=== PATIENT | male | born 1945 | race Caucasian/White ===

== ENCOUNTER 2019-11-11 18:24 | Emergency (ER) | payer OTHER ==
[2019-11-11] MEDS ORDERED: DIPHENHYDRAMINE 25 MG TAB/CAP ONE (19:44)
[2019-11-11] MEDS ORDERED: METHYLPREDNISOLONE 125 MG INJ ONE (19:50)
[2019-11-11] MEDS ORDERED: DIPHENHYDRAMINE 50 MG/ML VIAL ONE (19:51)
[2019-11-11] MEDS ORDERED: FAMOTIDINE 20 MG/2 ML VIAL IV ONE (19:51)
--- NOTE | 2019-11-11 20:48 | EDPHYS ---
Physician Documentation [facility] Name: Christian Tejada Age: 74 yrs Sex: Male : 1945 Arrival Date: 11/11/2019 Time: 18:26 Bed 8 Private MD: ED Physician Karl Waldron HPI: 11/10 19:48 This 74 yrs old Male presents to ER via Ambulatory with complaints of Bee mh7 Sting, Arm Swelling. 19:48 The patient or guardian complains of a bite, by an insect, swelling. The complaints mh7 affect the left forearm. Context: The problem was sustained at a friend's house, resulted from Wasp sting. Onset: The symptoms/episode began/occurred yesterday. Treatment prior to arrival includes: no previous treatment. Modifying factors: The symptoms are alleviated by nothing. the symptoms are aggravated by nothing. Associated signs and symptoms: Pertinent negatives: decreased range of motion, deformity, fever, nausea, numbness, pain, tingling, vomiting, warmth, weakness. Severity of symptoms: At their worst the symptoms were moderate, yesterday, in the emergency department the symptoms have improved, moderately. Historical: - Allergies: 18:49 No Known Drug Allergies; ll1 - PMHx: 18:49 High Cholesterol; Diabetes - NIDDM; Hypertension; ll1 - PSHx: 18:49 AAA REPAIR; ll1 - Immunization history:: Flu vaccine is not up to date. - Social history:: Smoking status: Patient denies any tobacco usage or history of. Patient/guardian denies using alcohol, street drugs, tobacco products. ROS: 19:48 Constitutional: Negative for fever, chills, and weight loss, Eyes: Negative for injury, mh7 pain, redness, and discharge, ENT: Negative for injury, pain, and discharge, Neck: Negative for injury, pain, and swelling, Cardiovascular: Negative for chest pain, palpitations, and edema, Respiratory: Negative for shortness of breath, cough, wheezing, and pleuritic chest pain, Abdomen/GI: Negative for abdominal pain, nausea, vomiting, diarrhea, and constipation, Back: Negative for injury and pain, : Negative for injury, bleeding, discharge, and swelling, Neuro: Negative for headache, weakness, numbness, tingling, and seizure, Psych: Negative for depression, anxiety, suicide ideation, homicidal ideation, and hallucinations, Allergy/Immunology: Negative for hives, rash, and allergies, Endocrine: Negative for neck swelling, polydipsia, polyuria, polyphagia, and marked weight changes, Hematologic/Lymphatic: Negative for swollen nodes, abnormal bleeding, and unusual bruising. Exam: 19:48 Constitutional: This is a well developed, well nourished patient who is awake, alert, mh7 and in no acute distress. Head/Face: Normocephalic, atraumatic. Eyes: Pupils equal round and reactive to light, extra-ocular motions intact. Lids and lashes normal. Conjunctiva and sclera are non-icteric and not injected. Cornea within normal limits. Periorbital areas with no swelling, redness, or edema. ENT: Nares patent. No nasal discharge, no septal abnormalities noted. Tympanic membranes are normal and external auditory canals are clear. Oropharynx with no redness, swelling, or masses, exudates, or evidence of obstruction, uvula midline. Mucous membranes moist. Neck: Trachea midline, no thyromegaly or masses palpated, and no cervical lymphadenopathy. Supple, full range of motion without nuchal rigidity, or vertebral point tenderness. No Meningismus. Chest/axilla: Normal chest wall appearance and motion. Nontender with no deformity. No lesions are appreciated. Cardiovascular: Regular rate and rhythm with a normal S1 and S2. No gallops, murmurs, or rubs. Normal PMI, no JVD. No pulse deficits. Respiratory: Lungs have equal breath sounds bilaterally, clear to auscultation and percussion. No rales, rhonchi or wheezes noted. No increased work of breathing, no retractions or nasal flaring. Abdomen/GI: Soft, non-tender, with normal bowel sounds. No distension or tympany. No guarding or rebound. No evidence of tenderness throughout. Back: No spinal tenderness. No costovertebral tenderness. Full range of motion. 19:48 Neuro: Awake and alert, GCS 15, oriented to person, place, time, and situation. Cranial nerves II-XII grossly intact. Motor strength 5/5 in all extremities. Sensory grossly intact. Cerebellar exam normal. Normal gait. Psych: Awake, alert, with orientation to person, place and time. Behavior, mood, and affect are within normal limits. 19:48 Musculoskeletal/extremity: Extremities: noted in the left forearm: erythema, swelling, ROM: intact in all extremities, Circulation is intact in all extremities. Sensation intact. Compartment Syndrome exam of affected extremity: is normal. no pain, no numbness, no tingling, no sensation deficit, no palor, no weak pulses, Joints: All joints are normal except Weight bearing: able to fully bear weight, without difficulty, Tendon exam: specific tendon testing normal through active and passive range of motion Vital Signs: 18:50 BP 141 / 98; Pulse 89; Resp 18; Temp 98.7; Pulse Ox 97% ; Pain 4/10; ll1 20:00 BP 135 / 75; Pulse 85; Resp 16; Temp 98.2; Pulse Ox 99% ; Pain 0/10; rr5 21:00 BP 131 / 70; Pulse 80; Resp 17; Pulse Ox 98% on R/A; rr5 MDM: 19:28 Patient medically screened. [facility] 20:45 Differential diagnosis: Insect Bite, Insect Sting, Cellulitis, Allergic Reaction. Data [facility] reviewed: vital signs, nurses notes. Data interpreted: Pulse oximetry: on room air is 99 %. Interpretation: normal. Counseling: I had a detailed discussion with the patient and/or guardian regarding: the historical points, exam findings, and any diagnostic results supporting the discharge/admit diagnosis, the need for outpatient follow up, to return to the emergency department if symptoms worsen or persist or if there are any questions or concerns that arise at home. Response to treatment: the patient's symptoms have markedly improved after treatment. 11/10 19:51 Order name: Glucose, Ancillary Testing [facility] 11/10 19:31 Order name: Accucheck Blood Glucose; Complete Time: 19:59 [facility] 11/10 19:58 Order name: IV Saline Lock; Complete Time: 19:58 rr5 Administered Medications: 19:50 Drug: Pepcid 20 mg Route: IVP; Site: right hand; rr5 21:00 Follow up: Response: No adverse reaction rr5 11/11 01:16 Follow up: Response: No adverse reaction 5 11/10 19:52 Drug: Benadryl 50 mg Route: IVP; Site: right hand; rr5 21:00 Follow up: Response: No adverse reaction 5 19:54 Drug: SOLU-Medrol 125 mg Route: IVP; Site: right hand; rr5 21:00 Follow up: Response: No adverse reaction rr5 19:57 Not Given (Other Intervention Used): Benadryl 50 mg PO once rr5 19:57 Not Given (Other Intervention Used): Pepcid 20 mg PO once rr5 Disposition: 11/11/19 20:47 Discharged to Home. Impression: Wasp Sting. - Condition is Stable. - Prescriptions for Benadryl 25 mg Oral Capsule - take 1 capsule by ORAL route every 6 hours As needed; 30 tablet. Pepcid 20 mg Oral Tablet - take 1 tablet by ORAL route every 12 hours for 5 days; 10 tablet. Prednisone 20 mg Oral Tablet - take 2 tablet by ORAL route once daily for 5 days; 10 tablet. - Medication Reconciliation Form, Thank You Letter, Antibiotic Education, Prescription Opioid Use form. - Follow up: Private Physician; When: 1 - 2 days; Reason: Worsening of condition, Recheck today's complaints, Re-evaluation by your physician. - Problem is new. - Symptoms have improved. Signatures: Dispatcher [employer] EDMS Alin Hemphill RN RN jb4 Janes Felipe RN RN rr5 Ankit Bridges RN RN ll1 Karl Waldron MD MD mh7 Corrections: (The following items were deleted from the chart) 21:09 20:47 11/11/2019 20:47 Discharged to Home. Impression: Wasp Sting. Condition is Stable. jb4 Forms are Medication Reconciliation Form, Thank You Letter, Antibiotic Education, Prescription Opioid Use. Follow up: Private Physician; When: 1 - 2 days; Reason: Worsening of condition, Recheck today's complaints, Re-evaluation by your physician. Problem is new. Symptoms have improved. mh7
--- NOTE | 2019-11-11 20:48 | ER ---
Nurse's Notes [facility] Name: Christian Tejada Age: 74 yrs Sex: Male : 1945 Arrival Date: 11/11/2019 Time: 18:26 Bed 8 Private MD: Diagnosis: Wasp Sting Presentation: 11/10 18:50 Chief complaint: Patient states: Insect bite to left FA yesterday. Swelling, pain, and ll1 redness getting worse since. Coronavirus screen: Proceed with normal triage. Patient denies a cough. Patient denies shortness of breath or difficulty breathing. Patient denies measured and/or subjective temperature greater than 100.4F prior to today's visit. Patient denies travel on a cruise ship or to a country the [facility] currently lists as an affected area. Patient denies contact with known and/or suspected case of COVID-19. Ebola Screen: Patient denies travel to an Ebola-affected area in the 21 days before illness onset. Onset: The symptoms/episode began/occurred yesterday. Anaphylaxis evaluation, no signs or symptoms of anaphylaxis were noted. Initial Sepsis Screen: Does the patient meet any 2 criteria? No. Patient's initial sepsis screen is negative. Risk Assessment: Do you want to hurt yourself or someone else? Patient reports no desire to harm self or others. Onset of symptoms was November 10, 2019. 18:50 Acuity: JAMES 3 ll1 18:50 Method Of Arrival: Ambulatory ll1 18:50 Initial Sepsis Screen: Does the patient have a suspected source of infection? Yes: Skin rr5 breakdown/wound. Historical: - Allergies: 18:49 No Known Drug Allergies; ll1 - PMHx: 18:49 High Cholesterol; Diabetes - NIDDM; Hypertension; ll1 - PSHx: 18:49 AAA REPAIR; ll1 - Immunization history:: Flu vaccine is not up to date. - Social history:: Smoking status: Patient denies any tobacco usage or history of. Patient/guardian denies using alcohol, street drugs, tobacco products. Screenin:00 Abuse screen: Denies threats or abuse. Denies injuries from another. Nutritional rr5 screening: No deficits noted. Tuberculosis screening: No symptoms or risk factors identified. Fall Risk IV access (20 points). Total Maguire Fall Scale indicates No Risk (0-24 pts). Assessment: 19:30 General: Appears in no apparent distress. comfortable, Behavior is calm, cooperative, rr5 appropriate for age. Pain: Denies pain. 19:30 Neuro: Level of Consciousness is awake, alert, obeys commands, Oriented to person, rr5 place, time, situation. Cardiovascular: Capillary refill < 3 seconds Patient's skin is warm and dry. Respiratory: Airway is patent Respiratory effort is even, unlabored, Respiratory pattern is regular, symmetrical, Breath sounds are clear bilaterally. Denies shortness of breath. GI: No signs and/or symptoms were reported involving the gastrointestinal system. : No signs and/or symptoms were reported regarding the genitourinary system. EENT: No signs and/or symptoms were reported regarding the EENT system. Derm: Skin is intact, is healthy with good turgor, Skin temperature is warm Rash noted that is itchy, papular, red, on left forearm. Musculoskeletal: Capillary refill < 3 seconds, Swelling present in left forearm. 20:50 Reassessment: Patient appears in no apparent distress at this time. Patient is alert, rr5 oriented x 3, equal unlabored respirations, skin warm/dry/pink. Patient states symptoms have improved. 21:00 Reassessment: Patient appears in no apparent distress at this time. Patient is alert, rr5 oriented x 3, equal unlabored respirations, skin warm/dry/pink. discharge instruction given and explained without complaints made. Patient states feeling better. Vital Signs: 18:50 BP 141 / 98; Pulse 89; Resp 18; Temp 98.7; Pulse Ox 97% ; Pain 4/10; ll1 20:00 BP 135 / 75; Pulse 85; Resp 16; Temp 98.2; Pulse Ox 99% ; Pain 0/10; rr5 21:00 BP 131 / 70; Pulse 80; Resp 17; Pulse Ox 98% on R/A; rr5 ED Course: 18:26 Patient arrived in ED. as 18:51 Triage completed. ll1 19:03 Karl Waldron MD is Attending Physician. 7 19:10 Janes Felipe, ELIGIO is Primary Nurse. rr5 19:30 Patient has correct armband on for positive identification. Bed in low position. Call rr5 light in reach. Pulse ox on. NIBP on. 19:30 Arm band placed on right wrist. rr5 19:50 Inserted saline lock: 22 gauge in right hand, using aseptic technique. rr5 21:30 No provider procedures requiring assistance completed. IV discontinued, intact, rr5 bleeding controlled, No redness/swelling at site. Pressure dressing applied. Administered Medications: 19:50 Drug: Pepcid 20 mg Route: IVP; Site: right hand; rr5 21:00 Follow up: Response: No adverse reaction rr5 11/11 01:16 Follow up: Response: No adverse reaction rr5 11/10 19:52 Drug: Benadryl 50 mg Route: IVP; Site: right hand; rr5 21:00 Follow up: Response: No adverse reaction rr5 19:54 Drug: SOLU-Medrol 125 mg Route: IVP; Site: right hand; rr5 21:00 Follow up: Response: No adverse reaction rr5 19:57 Not Given (Other Intervention Used): Benadryl 50 mg PO once rr5 19:57 Not Given (Other Intervention Used): Pepcid 20 mg PO once rr5 Outcome: 20:47 Discharge ordered by . 7 21:00 Discharged to home ambulatory. rr5 21:00 Condition: stable 21:00 Discharge instructions given to patient, Instructed on discharge instructions, follow up and referral plans. medication usage, Demonstrated understanding of instructions, follow-up care, medications, Prescriptions given X 3. 21:09 Patient left the ED. jb4 Signatures: Ileana Ballard James RN RN jb4 Janes Felipe RN RN rr5 Ankit Bridges RN RN ll1 Karl Waldron MD MD 7 Corrections: (The following items were deleted from the chart) 19:10 18:50 Chief complaint: Patient states: Insect bit to left FA yesterday. Swelling, pain, ll1 and redness getting worse since. ll1 11/11 01:15 11/10 21:10 BP 131 / 70; Pulse 80bpm; Resp 17bpm; Pulse Ox 98% RA; rr5 rr5 11/11 01:16 06 21:30 Reassessment: Patient appears in no apparent distress at this time. Patient rr5 is alert, oriented x 3, equal unlabored respirations, skin warm/dry/pink. discharge instruction given and explained without complaints made. Patient states feeling better. rr5
[2019-11-11 21:22] VITALS: BP 135/75; TEMP 98.2; O2SAT 99
== END 2019-11-11 21:09 | disposition home or self-care (01) ==
LOC: ER 18:24
DX: S50.862A Insect bite (nonvenomous) of left forearm, initial encounter (principal); I10 Essential (primary) hypertension
CPT/HCPCS: 82947; 96375; 96374; 99284; J1200; J2930

== ENCOUNTER 2023-04-23 22:41 | Emergency (ER) | payer OTHER ==
--- OUTSIDE RECORDS SUMMARY | 2023-04-23 22:44 | XMS REPORT | Continuity of Care Document ---
Author Name Unknown Address [address] [place] [address] [facility] thconnect Address [address] [place] [address] Care Team Providers Care Senior Microsoft Consultant Name Role Phone CHRISTOPHER GIBBS Primary Care Physician NERISSA Lopez Attending Clinician Mamie Simpson MD, Nerissa Santos Attending Clinician [phone] NERISSA HOBSON Admitting Clinician Mamie garcia Payers Payer Name Policy Type Policy Number Effective Date Expirati on Date Source Code Blue [id number] 2022 00:00:00 Allergies, Adverse Reactions, Alerts Allergy Name Allergy Type Status Severity Reaction(s) Onset Date Inactive Date Treating Clinician Comments Source NO KNOWN ALLERGIE S Drug Class Active [facility] Social History Social Habit Start Date Stop Date Quantity Comments Source Sexual orientation [facility] Gender identity [facility] Sex Assigned At 1945 00:00:00 1945 00:00:00 [facility] Smoking Status Start Date Stop Date Source Tobacco smoking consumption unknown [facility] Procedures Procedure Date / Time Performed Performing Clinicia n Source MR LUMBAR SPINE WO CONTRAST 2022-12-13 16:47:15 Nerissa Hobson [facility] Encounters Start Date/Time End Date/Time Encounter Type Admission Type Attending Clinicians Care Facility Care Department Encounter ID Source 2022-12-13 10:15:09 2022-12-13 23:59:00 Outpatient R NERISSA HOBSON [facility] [id number] [facility] 2022-12-13 10:00:00 2022-12-13 23:59:00 Hospital Encounter Nerissa Hobson [facility] [id number] [facility]
[2023-04-23] MEDS ORDERED: HYDROCODONE/APAP 5/325 MG TAB ONE (23:29)
[2023-04-23] MEDS ORDERED: methocarbamoL 750 MG TAB ONE (23:29)
[2023-04-23] MEDS ORDERED: IBUPROFEN 400 MG TAB ONE (23:29)
[2023-04-23] MEDS ORDERED: ONDANSETRON 4 MG (ODT) TAB ONE (23:30)
--- NOTE | 2023-04-24 02:18 | ER ---
Nurse's Notes [facility] Name: Christian Tejada Age: 78 yrs Sex: Male : 1945 Arrival Date: 04/23/2023 Time: 22:41 Bed 16 Private MD: Diagnosis: Contusion of left shoulder;Acute head injury, left shoulder contusion, left shoulder sprain, left forearm abrasion, left hand abrasion Presentation: 04/23 22:52 Chief complaint: Patient states: tripped and fell in parking lot hit left shoulder on running board abrasians noted to left arm no active bleeding noted. Coronavirus screen: Vaccine status: Patient reports receiving the 2nd dose of the covid vaccine. Ebola Screen: Patient negative for fever greater than or equal to 101.5 degrees Fahrenheit, and additional compatible Ebola Virus Disease symptoms. Initial Sepsis Screen: Does the patient meet any 2 criteria? No. Patient's initial sepsis screen is negative. Does the patient have a suspected source of infection? No. Patient's initial sepsis screen is negative. Risk Assessment: Do you want to hurt yourself or someone else? Patient reports no desire to harm self or others. Onset of symptoms was April 23, 2023 at 21:30. 22:52 Method Of Arrival: Wheelchair kl 22:52 Acuity: JAMES 3 kl Triage Assessment: 23:01 General: Appears uncomfortable, Behavior is calm, cooperative. Pain: Complains of pain kl in left supraclavicular area Pain currently is 8 out of 10 on a pain scale. Historical: - Allergies: 22:54 No Known Allergies; - Home Meds: 22:54 metformin 1,000 mg oral tablet 2 times per day [Active]; omeprazole 20 mg Oral kl capsule,delayed release (e.c.) daily [Active]; lisinopril 5 mg Oral tablet 1 tab daily [Active]; clopidogrel 75 mg oral tablet 1 tab daily [Active]; atorvastatin 10 mg oral tablet every day at bedtime [Active]; Lasix 20 mg Oral tablet 1 tab daily [Active]; metoprolol tartrate 50 mg Oral tablet daily [Active]; allopurinol 100 mg Oral tablet daily [Active]; amlodipine 5 mg tablet 1 tab daily [Active]; glimepiride 1 mg Oral tablet daily [Active]; tramadol 50 mg Oral tablet 3 times per day [Active]; - PMHx: 22:54 Diabetes - NIDDM; High Cholesterol; Hypertension; Aneurysm; Gout; Chronic back pain; kl - PSHx: 22:54 hernia repair (Hypertension); Stented artery; kl - Immunization history:: Client reports receiving the 2nd dose of the Covid vaccine, Last tetanus immunization: unknown, Pneumococcal vaccine is up to date, Flu vaccine is up to date. - Social history:: Smoking status: Patient denies any tobacco usage or history of. - Family history:: not pertinent. Screenin:25 [facility] ED Fall Risk Assessment (Adult) History of falling in the last 3 months, tm6 including since admission Yes- single mechanical fall (1 pt) Confusion or Disorientation No (0 pts) Intoxicated or Sedated No (0 pts) Impaired Gait No (0 pts) Mobility Assist Device Used No (0 pt) Altered Elimination No (0 pt) Score/Fall Risk Level 0 - 2 = Low Risk Oriented to surroundings, Maintained a safe environment, Educated pt \T\ family on fall prevention, incl call for assistance when getting out of bed, Assessed \T\ reinforced patient's understanding of fall precautions, Hourly rounding (assess needs \T\ fall precautionary measures) done. Abuse screen: Denies threats or abuse. Denies injuries from another. Nutritional screening: No deficits noted. Tuberculosis screening: No symptoms or risk factors identified. Assessment: 23:25 General: Appears in no apparent distress. Behavior is calm, cooperative, appropriate tm6 for age. Pain: Complains of pain in posterior aspect of left shoulder Pain currently is 9 out of 10 on a pain scale. Alleviated by rest, Aggravated by repositioning. Neuro: Level of Consciousness is awake, alert, obeys commands, Oriented to person, place, time, situation. Cardiovascular: Capillary refill < 3 seconds Patient's skin is warm and dry. Respiratory: Airway is patent Respiratory effort is even, unlabored, Respiratory pattern is regular, symmetrical. GI: Abdomen is flat, non-distended. : No signs and/or symptoms were reported regarding the genitourinary system. EENT: No signs and/or symptoms were reported regarding the EENT system. Derm: No signs and/or symptoms reported regarding the dermatologic system. Musculoskeletal: Reports pain in posterior aspect of left shoulder. 12/12 00:16 Reassessment: Patient appears in no apparent distress at this time. Patient and/or tm6 family updated on plan of care and expected duration. Pain level reassessed. Patient is alert, oriented x 3, equal unlabored respirations, skin warm/dry/pink. 01:10 Reassessment: Patient appears in no apparent distress at this time. Patient and/or tm6 family updated on plan of care and expected duration. Pain level reassessed. Patient is alert, oriented x 3, equal unlabored respirations, skin warm/dry/pink. 01:11 Reassessment: Right elbow bleeding. Cleaned with saline and dressing applied. tm6 02:15 Reassessment: Patient appears in no apparent distress at this time. Patient and/or tm6 family updated on plan of care and expected duration. Pain level reassessed. Patient is alert, oriented x 3, equal unlabored respirations, skin warm/dry/pink. Vital Signs: 04/23 22:52 BP 142 / 104; Pulse 92; Resp 20; Temp 98(TE); Pulse Ox 98% on R/A; Weight 99.79 kg; kl Height 6 ft. 0 in. ; Pain 8/10; 23:25 BP 149 / 102; Pulse 95; Pulse Ox 94% on R/A; Pain 9/10; tm6 04/24 00:16 BP 111 / 76; Pulse 92; Pulse Ox 95% ; Pain 4/10; tm6 01:10 BP 119 / 78; Pulse 89; Resp 17; Pulse Ox 93% on R/A; Pain 4/10; tm6 02:15 BP 117 / 89; Pulse 87; Pulse Ox 94% on R/A; tm6 04/23 22:52 Body Mass Index 29.84 (99.79 kg, 182.88 cm) 04/23 22:52 Pain Scale: Adult kl 23:25 Pain Scale: Adult tm6 04/24 00:16 Pain Scale: Adult tm6 01:10 Pain Scale: Adult tm6 ED Course: 04/23 22:51 Patient arrived in ED. jb4 22:54 Triage completed. kl 22:58 Jered Wallis MD is Attending Physician. sp4 23:25 Jason Jaramillo RN is Primary Nurse. tm6 23:25 Patient has correct armband on for positive identification. Placed in gown. Bed in low tm6 position. Call light in reach. Side rails up X2. Provided Education on: plan of care. Client placed on continuous cardiac and pulse oximetry monitoring. NIBP monitoring applied. Door closed. Noise minimized. Warm blanket given. 23:25 Arm band placed on right wrist. tm6 23:25 No provider procedures requiring assistance completed. tm6 23:51 Chest Pa And Lat (2 Views) XRAY In Process Unspecified. EDMS 23:51 Shoulder Left (2 View) XRAY In Process Unspecified. EDMS 04/24 00:01 CT Head C Spine In Process Unspecified. EDMS 01:11 Dressings: Tegaderm X 1; right elbow 4X4s. tm6 02:40 Shoulder immobilizer applied on left shoulder. tm6 02:41 Patient did not have IV access during this emergency room visit. tm6 Administered Medications: 04/23 23:21 Not Given (Other Intervention Used): norco10 mg-325 mg 1 tabs PO once kl 23:21 Drug: Methocarbamol PO 750 mg PO once Route: PO; kl 23:21 Drug: Ibuprofen PO 400 mg PO once Route: PO; kl 23:21 Drug: Ondansetron PO 4 mg PO once Route: PO; kl 23:22 Drug: HYDROcodone-acetaminophen PO 5 mg-325 mg 2 tabs PO once Route: PO; kl 04/24 02:20 Drug: Boostrix Tdap IM 0.5 ml IM once; as a single dose Route: IM; Site: right deltoid; tm6 02:38 CANCELLED (not in pyxiss): tetanus-diphtheria toxoidadult 0.5 ml IM once; Provide tm6 Vaccine Information Statement (VIS). Medication: 04/23 23:25 VIS not applicable for this client. tm6 Outcome: 04/24 02:17 Discharge ordered by . sp4 02:40 Discharged to home ambulatory, with family, tm6 02:40 Condition: stable 02:40 Discharge instructions given to patient, family, Instructed on discharge instructions, follow up and referral plans. medication usage, Demonstrated understanding of instructions, follow-up care, medications, Prescriptions given X 1, 02:41 Patient left the ED. tm6 Signatures: Dispatcher [employer] EDReyna Palomino RN RN kl Bryson, James, RN RN jb4 Potepalov, Sergey, MD MD sp4 Jason Jaramillo RN RN tm6 Corrections: (The following items were deleted from the chart) 02:40 02:39 BP 117 / 89; Pulse 87bpm; Pulse Ox 94% RA; tm6 tm6
--- NOTE | 2023-04-24 02:18 | EDPHYS ---
Physician Documentation [facility] Name: Christian Tejada Age: 78 yrs Sex: Male : 1945 Arrival Date: 04/23/2023 Time: 22:41 Bed 16 Private MD: ED Physician Jered Wallis HPI: 04/23 22:58 This 78 yrs old Male presents to ER via Wheelchair with complaints of gen sp4 complaint . 04/24 20:11 . sp4 20:11 Patient is 78-year-old of [employer] today fell in a parking lot sp4 landing on his left shoulder causing left shoulder pain, left clavicular pain, also left-sided facial injury, left forearm abrasion as well. Denied LOC, GCS 15 on arrival. Historical: - Allergies: 04/23 22:54 No Known Allergies; kl - Home Meds: 22:54 metformin 1,000 mg oral tablet 2 times per day [Active]; omeprazole 20 mg Oral kl capsule,delayed release (e.c.) daily [Active]; lisinopril 5 mg Oral tablet 1 tab daily [Active]; clopidogrel 75 mg oral tablet 1 tab daily [Active]; atorvastatin 10 mg oral tablet every day at bedtime [Active]; Lasix 20 mg Oral tablet 1 tab daily [Active]; metoprolol tartrate 50 mg Oral tablet daily [Active]; allopurinol 100 mg Oral tablet daily [Active]; amlodipine 5 mg tablet 1 tab daily [Active]; glimepiride 1 mg Oral tablet daily [Active]; tramadol 50 mg Oral tablet 3 times per day [Active]; - PMHx: 22:54 Diabetes - NIDDM; High Cholesterol; Hypertension; Aneurysm; Gout; Chronic back pain; kl - PSHx: 22:54 hernia repair (Hypertension); Stented artery; kl - Immunization history:: Client reports receiving the 2nd dose of the Covid vaccine, Last tetanus immunization: unknown, Pneumococcal vaccine is up to date, Flu vaccine is up to date. - Social history:: Smoking status: Patient denies any tobacco usage or history of. - Family history:: not pertinent. ROS: 04/24 20:11 Constitutional: Negative for fever, chills, and weight loss, positive acute fall, sp4 positive left-sided facial head injury, positive left shoulder injury, positive left clavicular pain, positive left forearm abrasion, positive left hand abrasion All other systems are negative, Exam: 20:11 Constitutional: This is a well developed, well nourished patient who is awake, alert, sp4 and in no acute distress. Head/Face: Normocephalic, atraumatic. There is a left-sided facial contusion Eyes: Pupils equal round and reactive to light, extra-ocular motions intact. Lids and lashes normal. Conjunctiva and sclera are not injected. Cornea within normal limits. Periorbital areas with no swelling, redness, or edema. ENT: Nares patent. No nasal discharge, no septal abnormalities noted. Tympanic membranes are normal and external auditory canals are clear. Oropharynx with no redness, swelling, or masses, exudates, or evidence of obstruction, uvula midline. Mucous membranes moist. Neck: Trachea midline, no thyromegaly or masses palpated, and no cervical lymphadenopathy. Supple, full range of motion without nuchal rigidity, or vertebral point tenderness. Chest/axilla: Normal chest wall appearance and motion. Nontender with no deformity. No lesions are appreciated. Cardiovascular: Regular rate and rhythm with a normal S1 and S2. No gallops, murmurs, or rubs. Normal PMI, no JVD. No pulse deficits. Respiratory: Lungs have equal breath sounds bilaterally, clear to auscultation and percussion. No rales, rhonchi or wheezes noted. No increased work of breathing, no retractions or nasal flaring. Abdomen/GI: Soft, non-tender, with normal bowel sounds. No distension or tympany. No guarding or rebound. No evidence of tenderness throughout. Back: No spinal tenderness. No costovertebral tenderness. Skin: Warm, dry with normal turgor. Normal color with no rashes, no lesions, and no evidence of cellulitis. MS/ Extremity: Pulses equal, no cyanosis. Neurovascular intact. Positive left shoulder tenderness, left shoulder diminished range of motion, no deformity, no sign of dislocation. Normal distal neurovascular status Neuro: Awake and alert, GCS 15, oriented to person, place, time, and situation. Cranial nerves II-XII grossly intact. Motor strength 5/5 in all extremities. Sensory grossly intact. Psych: Awake, alert, with orientation to person, place and time. Behavior, mood, and affect are within normal limits Vital Signs: 04/23 22:52 BP 142 / 104; Pulse 92; Resp 20; Temp 98(TE); Pulse Ox 98% on R/A; Weight 99.79 kg; kl Height 6 ft. 0 in. ; Pain 8/10; 23:25 BP 149 / 102; Pulse 95; Pulse Ox 94% on R/A; Pain 9/10; tm6 04/24 00:16 BP 111 / 76; Pulse 92; Pulse Ox 95% ; Pain 4/10; tm6 01:10 BP 119 / 78; Pulse 89; Resp 17; Pulse Ox 93% on R/A; Pain 4/10; tm6 02:15 BP 117 / 89; Pulse 87; Pulse Ox 94% on R/A; tm6 04/23 22:52 Body Mass Index 29.84 (99.79 kg, 182.88 cm) kl 04/23 22:52 Pain Scale: Adult kl 23:25 Pain Scale: Adult tm6 04/24 00:16 Pain Scale: Adult tm6 01:10 Pain Scale: Adult tm6 MDM: 04/23 23:08 Patient medically screened. sp4 04/24 02:07 ED course: X ray - EXAM: XR Left Shoulder Complete, 2 or More Views CLINICAL HISTORY: sp4 The patient is 78 years old and is Male; shoulder injury left TECHNIQUE: Two or more views of the left shoulder. COMPARISON: No relevant prior studies available. FINDINGS: BONES/JOINTS: Minimal acromioclavicular spurring is present. No acute fracture. No dislocation. SOFT TISSUES: Unremarkable. IMPRESSION: No acute findings in the left shoulder. . ED course: Chest - CLINICAL HISTORY: The patient is 78 years old and is Male; CHEST PAIN TECHNIQUE: Frontal and lateral views of the chest. COMPARISON: No relevant prior studies available. FINDINGS: LUNGS: Unremarkable. No consolidation. PLEURAL SPACE: Unremarkable. No pneumothorax. HEART: Unremarkable. No cardiomegaly. MEDIASTINUM: Unremarkable. Normal mediastinal contour. BONES/JOINTS: Unremarkable. No acute fracture. UPPER ABDOMEN: Unremarkable as visualized. IMPRESSION: No acute cardiopulmonary process. . ED course: CT - COMPARISON: No relevant prior studies available. FINDINGS: BRAIN: There is diffuse cerebral atrophy present, consistent with this patient's age. There is patchy hypoattenuation of the deep white matter which is non-specific, but most likely owing to chronic small vessel ischemic change in a patient of this age group. No intracranial hemorrhage, mass effect, or midline shift is seen. There are no extra-axial fluid collections. VENTRICLES: Unremarkable. No ventriculomegaly. SKULL: No acute fracture. SINUSES: Chronic opacification of left maxillary sinus is present. The remainder the paranasal sinuses are clear. MASTOID AIR CELLS: Fluid is present within the bilateral mastoid air cells. VERTEBRAE: Extensive facet arthropathy on the left at C3-C4 is present. The vertebral body heights are grossly maintained without acute fracture. DISCS/SPINAL CANAL/NEURAL FORAMINA: Extensive intervertebral disc space narrowing with osteophyte formation and endplate irregularity from C5 through C7 is present. Posterior disc osteophyte complexes causing bilateral neural foraminal narrowing at these levels is present. SOFT TISSUES: The soft tissues are normal. LUNG APICES: The lung apices are clear. IMPRESSION: 1. No acute intracranial findings. 2. Moderate spondylosis of the cervical spine without acute findings. . 20:11 Differential Diagnosis altered mental status, sepsis, flu. Data reviewed: vital signs, sp4 nurses notes, radiologic studies, CT scan, plain films. Consideration of Admission/Observation Escalation of care including admission/observation considered. 04/23 23:09 Order name: CT Head C Spine sp4 04/23 23:09 Order name: Chest Pa And Lat (2 Views) XRAY sp4 04/23 23:10 Order name: Shoulder Left (2 View) XRAY sp4 04/24 02:15 Order name: Wound Care; Complete Time: 02:39 sp4 04/24 02:15 Order name: Sling; Complete Time: 02:39 sp4 Administered Medications: 04/23 23:21 Not Given (Other Intervention Used): norco10 mg-325 mg 1 tabs PO once kl 23:21 Drug: Methocarbamol PO 750 mg PO once Route: PO; kl 23:21 Drug: Ibuprofen PO 400 mg PO once Route: PO; kl 23:21 Drug: Ondansetron PO 4 mg PO once Route: PO; kl 23:22 Drug: HYDROcodone-acetaminophen PO 5 mg-325 mg 2 tabs PO once Route: PO; kl 04/24 02:20 Drug: Boostrix Tdap IM 0.5 ml IM once; as a single dose Route: IM; Site: right deltoid; tm6 02:38 CANCELLED (not in pyxiss): tetanus-diphtheria toxoidadult 0.5 ml IM once; Provide tm6 Vaccine Information Statement (VIS). Disposition Summary: 04/24/23 02:17 Discharge Ordered Problem: new sp4 Symptoms: have improved sp4 Condition: Stable sp4 Diagnosis - Contusion of left shoulder sp4 - Acute head injury, left shoulder contusion, left shoulder sprain, left forearm sp4 abrasion, left hand abrasion Followup: sp4 - With: Private Physician - When: 7 - 10 days - Reason: Recheck today's complaints Discharge Instructions: - Discharge Summary Sheet sp4 - Shoulder Sprain sp4 Forms: - Patient Portal Instructions sp4 Prescriptions: - methocarbamol 750 mg Oral tablet - take 1 tablet ORAL route every 8 hours PRN muscle soreness; 30 tablet; Refills: sp4 0, Product Selection Permitted Signatures: Dispatcher [employer] Reyna Connors RN RN kl Potepalov, Sergey, MD MD sp4 Jason Jaramillo RN RN tm6 Corrections: (The following items were deleted from the chart) 02:38 02:15 Tetanus-Diphtheria Toxoid IM Adult 0.5 ml IM once; Provide Vaccine Information tm6 Statement (VIS). ordered. sp4
[2023-04-24 02:48] VITALS: TEMP 98
[2023-04-24 02:52] VITALS: BP 117/89; O2SAT 94
--- NOTE | 2023-04-24 22:11 | RAD REPORT ---
EXAM DESCRIPTION: CT Head and Cervical Spine Without Intravenous Contrast CLINICAL HISTORY: The patient is 78 years old and is Male; head and neck injury TECHNIQUE: Axial computed tomography images of the head/brain and cervical spine without intravenous contrast. Sagittal and coronal reformatted images were created and reviewed. This CT exam was pe rformed using one or more of the following dose reduction techniques: automated exposure control, a djustment of the mA and/or kV according to patient size, and/or use of iterative reconstruction techn ique. COMPARISON: No relevant prior studies available. FINDINGS: BRAIN: There is diffuse cerebral atrophy present, consistent with this patient's age. There is patchy hypoattenuation of the deep white matter which is non-specific, but most likely owing to chronic small vessel ischemic change in a patient of this age group. No intracranial hemorrhage , mass effect, or midline shift is seen. There are no extra-axial fluid collections. VENTRICLES: Unremarkable. No ventriculomegaly. SKULL: No acute fracture. SINUSES: Chronic opacification of left maxillary sinus is present. The remainder the paranasal si nuses are clear. MASTOID AIR CELLS: Fluid is present within the bilateral mastoid air cells. VERTEBRAE: Extensive facet arthropathy on the left at C3-C4 is present. The vertebral body height s are grossly maintained without acute fracture. DISCS/SPINAL CANAL/NEURAL FORAMINA: Extensive intervertebral disc space narrowing with osteophyte formation and endplate irregularity from C5 through C7 is present. Posterior disc osteophyte complex es causing bilateral neural foraminal narrowing at these levels is present. SOFT TISSUES: The soft tissues are normal. LUNG APICES: The lung apices are clear. IMPRESSION: 1. No acute intracranial findings. 2. Moderate spondylosis of the cervical spine without acute findings. Electronically signed by: Adrianne Robles MD 04/24/2023 12:30 AM TOOL AND FIXTURE REPAIRER Due to temporary technical issues with the PACS/Fluency reporting system, reports are being signed by the in house radiologists without review as a courtesy to insure prompt reporting. The interpreting radiologist is fully responsible for the content of the report.
--- NOTE | 2023-04-24 22:12 | RAD REPORT ---
EXAM DESCRIPTION: XR Chest, 2 Views CLINICAL HISTORY: The patient is 78 years old and is Male; CHEST PAIN TECHNIQUE: Frontal and lateral views of the chest. COMPARISON: No relevant prior studies available. FINDINGS: LUNGS: Unremarkable. No consolidation. PLEURAL SPACE: Unremarkable. No pneumothorax. HEART: Unremarkable. No cardiomegaly. MEDIASTINUM: Unremarkable. Normal mediastinal contour. BONES/JOINTS: Unremarkable. No acute fracture. UPPER ABDOMEN: Unremarkable as visualized. IMPRESSION: No acute cardiopulmonary process. 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 The interpreting radiologist is fully responsible for the content of the report.
--- NOTE | 2023-04-24 22:13 | RAD REPORT ---
EXAM DESCRIPTION: XR Left Shoulder Complete, 2 or More Views CLINICAL HISTORY: The patient is 78 years old and is Male; shoulder injury left TECHNIQUE: Two or more views of the left shoulder. COMPARISON: No relevant prior studies available. FINDINGS: BONES/JOINTS: Minimal acromioclavicular spurring is present. No acute fracture. No d islocation. SOFT TISSUES: Unremarkable. IMPRESSION: No acute findings in the left shoulder. 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 The interpreting radiologist is fully responsible for the content of the report.
== END 2023-04-24 02:41 | disposition home or self-care (01) ==
LOC: ER 22:41
DX: S43.402A Unspecified sprain of left shoulder joint, initial encounter (principal); S50.812A Abrasion of left forearm, initial encounter; S60.512A Abrasion of left hand, initial encounter; S09.90XA Unspecified injury of head, initial encounter; E11.9 Type 2 diabetes mellitus without complications; I10 Essential (primary) hypertension; E78.00 Pure hypercholesterolemia, unspecified
CPT/HCPCS: 70450; 72125; 71046; 73030; 96372; 99284; Q0162

== ENCOUNTER 2024-02-23 08:49 | Emergency (ER) | payer OTHER ==
--- OUTSIDE RECORDS SUMMARY | 2024-02-23 08:52 | XMS REPORT | Continuity of Care Document ---
Author Name Unknown Address [address] [place] [address] [facility] thconnect Address [address] [place] [address] Care Team Providers Care Racing Driver Name Role Phone BERNIE, CHRISTOPHER Primary Care Physician NERISSA Leong Attending Clinician Nerissa Leong MD Attending Clinician [phone] NERISSA HOBSON Admitting Clinician Mamie garcia Payers Payer Name Policy Type Policy Number Effective Date Expirati on Date Source [employer] [id number] 2022 00:00:00 Allergies, Adverse Reactions, Alerts Allergy Name Allergy Type Status Severity Reaction(s) Onset Date Inactive Date Treating Clinician Comments Source NO KNOWN ALLERGIE S Drug Class Active [facility] Social History Social Habit Start Date Stop Date Quantity Comments Source Sexual orientation [facility] Gender identity [facility] Sex Assigned At 1945 00:00[birth year]00 1945 00[birth year]:00 [facility] Smoking Status Start Date Stop Date Source Tobacco smoking consumption unknown [facility] Procedures Procedure Date / Time Performed Performing Clinicia n Source MR LUMBAR SPINE WO CONTRAST 2022-12-13 16:47:15 Nerissa Hobson [facility] Encounters Start Date/Time End Date/Time Encounter Type Admission Type Attending Clinicians Care Facility Care Department Encounter ID Source 2022-12-13 10:15:09 2022-12-13 23:59:00 Outpatient R NERISSA HOBSON [facility] [id number] [facility] 2022-12-13 10:00:00 2022-12-13 23:59:00 Hospital Encounter [facility]erissa [facility] [id number] [facility]
[2024-02-23] MEDS ORDERED: KETOROLAC 30 MG/ML INJ ONE (09:04)
--- NOTE | 2024-02-23 09:40 | RAD REPORT ---
EXAMINATION: US LEFT LOWER EXTREMITY VENOUS DOPPLER CLINICAL INDICATION: Pain;Swelling TECHNIQUE: Complete bilateral duplex sonography of the LEFT lower extremity veins was performed. The examination included compression for vein patency, color Doppler imaging and flow augmentation in response to distal compression of the distal external iliac, common femoral, femoral, popliteal, tibi al, and great and small saphenous veins. COMPARISON: No prior exam. FINDINGS: Duplex sonography testing of the veins of the LEFT lower extremity was performed. Color flow imaging shows all veins to be compressible with [id number] color filling. Pulsatile and phasic flow is present within all lower extremity deep and superficial veins examined. IMPRESSION: There is no deep vein or superficial vein thrombosis.
[2024-02-23] MEDS ORDERED: COLCHICINE 0.6 MG TAB ONE (09:47)
--- NOTE | 2024-02-23 10:06 | EDPHYS ---
Physician Documentation [facility] Name: Christian Tejada Age: 78 yrs Sex: Male : 1945 Arrival Date: 02/23/2024 Time: 08:49 Bed 2 Private MD: ED Physician Louis Zhu HPI: 02/22 09:06 This 78 yrs old Male presents to ER via Wheelchair with complaints of Ankle Injury. kb 09:06 Pt is a 78 year old male who presents for left ankle pain and swelling to foot that kb started 3 days ago. "It's gout is what it is." Pt reports history of gout and that this feels similar. Denies fever. . Historical: - Allergies: 08:54 No Known Drug Allergies; ll1 - Home Meds: 09:12 tramadol 50 mg Oral tablet 3 times per day [Active]; Lasix 20 mg Oral tablet 1 tab mb9 daily [Active]; clopidogrel 75 mg Oral tablet 1 tab daily [Active]; atorvastatin 10 mg Oral tablet every day at bedtime [Active]; allopurinol 100 mg Oral tablet daily [Active]; amlodipine 5 mg tablet 1 tab daily [Active]; glimepiride 1 mg Oral tablet daily [Active]; metformin 1 Oral tablet 2 times per day [Active]; lisinopril 5 mg Oral tablet 1 tab daily [Active]; metoprolol tartrate 50 mg Oral tablet daily [Active]; omeprazole 20 mg Oral capsule daily [Active]; - PMHx: 08:54 chronic back pain; Gout; Aneurysm; High Cholesterol; Hypertension; Diabetes - NIDDM; ll1 - PSHx: 08:54 hernia repair (en); Stented artery; ll1 - Immunization history:: Adult Immunizations up to date. - Infectious Disease History:: Denies. - Social history:: Smoking status: Patient denies any tobacco usage or history of. ROS: 09:06 Constitutional: As per HPI kb Exam: 09:06 Constitutional: This is a well developed, well nourished patient who is awake, alert, kb and in no acute distress. Head/Face: Normocephalic, atraumatic. ENT: Moist Mucous membranes Cardiovascular: Regular rate Respiratory: Respirations even and unlabored. No increased work of breathing. Talking in full sentences Skin: Warm, dry with normal turgor. Normal color. Neuro: Awake and alert, GCS 15, oriented to person, place, time, and situation. Moves all extremities. Normal gait. 09:06 Musculoskeletal/extremity: Extremities: grossly normal except: noted in the anterior aspect of left ankle: pain, swelling, tenderness, noted in the left foot: swelling, ROM: intact in all extremities, Circulation is intact in all extremities. Sensation intact. Weight bearing: able to fully bear weight, Vital Signs: 09:01 BP 144 / 98; Pulse 77; Resp 18; Temp 97; Pulse Ox 96% on R/A; Weight 97.07 kg; Height 6 ll1 ft. 0 in. ; Pain 7/10; 09:34 BP 139 / 81; Pulse 71; Resp 18; Pulse Ox 95% on R/A; mb9 09:01 Body Mass Index 29.02 (97.07 kg, 182.88 cm) ll1 09:01 Pain Scale: Adult ll1 MDM: 08:55 Patient medically screened. kb 10:05 Data reviewed: vital signs, nurses notes. kb 12:52 Differential diagnosis: sprain, arthritis, gout, cellulitis. Historians other than the kb Patient: Spouse/Significant Other: . Counseling: I had a detailed discussion with the patient and/or guardian regarding the historical points, exam findings, and any diagnostic results supporting the discharge/admit diagnosis, radiology results, the need for outpatient follow up, a family practitioner, to return to the emergency department if symptoms worsen or persist or if there are any questions or concerns that arise at home. ED course: No erythema or warmth/signs of cellulitis. 02/22 08:59 Order name: US Extremity Venous Unilateral Ltd; Complete Time: 09:43 kb Administered Medications: 09:11 Drug: Ketorolac IM 30 mg IM once Route: IM; Site: right deltoid; mb9 09:44 Follow up: Response: No adverse reaction mb9 09:50 Drug: Colcrys PO 1.2 mg PO once Route: PO; mb9 10:07 Follow up: Response: No adverse reaction mb9 Disposition Summary: 02/23/24 10:05 Discharge Ordered Notes: Location: Home kb Condition: Stable kb Diagnosis - Gout, unspecified kb Followup: kb - With: Emergency Department - When: As needed - Reason: Worsening of condition Followup: kb - With: Private Physician - When: 2 - 3 days - Reason: Recheck today's complaints, Continuance of care, Re-evaluation by your physician Discharge Instructions: - Discharge Summary Sheet kb - Gout, Lbbo-my-Olam kb Forms: - Medication Reconciliation Form kb - Antibiotic Education kb - Prescription Opioid Use kb - Patient Portal Instructions kb - Leadership Thank You Letter kb Prescriptions: - colchicine 0.6 mg Oral tablet - take 1 tablet ORAL route one time As needed May repeat dose one hour after kb first; 2 tablet; Refills: 0, Product Selection Permitted Addendum: 02/25/2024 09:17 I was immediately available for consultation during this patient's visit. I did not e c2 personally see the patient or discuss the patient with the MARTIN. . Signatures: Dispatcher [employer] Carine Mills, MALACHI CHUNG-Ankit Lynn, RN RN ll1 Gertrude Francis RN RN mb9 Louis Zhu MD MD ec2 Corrections: (The following items were deleted from the chart) 02/22 09:00 09:00 Extremity Venous Uni Ltd+[email or web address] ordered. [facility]
--- NOTE | 2024-02-23 10:06 | ER ---
Nurse's Notes [facility] Name: Christian Tejada Age: 78 yrs Sex: Male : 1945 Arrival Date: 02/23/2024 Time: 08:49 Bed 2 Private MD: Diagnosis: Gout, unspecified Presentation: 02/22 09:01 Chief complaint: Patient states: L ankle pain has been getting worse for 4 days. ll1 Coronavirus screen: Client denies travel out of the [place] in the last 14 days. At this time, the client does not indicate any symptoms associated with coronavirus-19. Ebola Screen: Patient denies travel to an Ebola-affected area in the 21 days before illness onset. Initial Sepsis Screen: Does the patient meet any 2 criteria? No. Patient's initial sepsis screen is negative. Does the patient have a suspected source of infection? No. Patient's initial sepsis screen is negative. Risk Assessment: Do you want to hurt yourself or someone else? Patient reports no desire to harm self or others. Onset of symptoms was February 20, 2024. 09:01 Method Of Arrival: Wheelchair [facility] 09:01 Acuity: JAMES 4 ll1 Triage Assessment: 08:54 General: Appears uncomfortable, Behavior is calm, cooperative, appropriate for age. ll1 Pain: Complains of pain in anterior aspect of left ankle Quality of pain is described as aching. Musculoskeletal: Swelling present in anterior aspect of left ankle Tenderness present in anterior aspect of left ankle Reports pain in anterior aspect of left ankle. Historical: - Allergies: 08:54 No Known Drug Allergies; ll1 - Home Meds: 09:12 tramadol 50 mg Oral tablet 3 times per day [Active]; Lasix 20 mg Oral tablet 1 tab mb9 daily [Active]; clopidogrel 75 mg Oral tablet 1 tab daily [Active]; atorvastatin 10 mg Oral tablet every day at bedtime [Active]; allopurinol 100 mg Oral tablet daily [Active]; amlodipine 5 mg tablet 1 tab daily [Active]; glimepiride 1 mg Oral tablet daily [Active]; metformin 1 Oral tablet 2 times per day [Active]; lisinopril 5 mg Oral tablet 1 tab daily [Active]; metoprolol tartrate 50 mg Oral tablet daily [Active]; omeprazole 20 mg Oral capsule daily [Active]; - PMHx: 08:54 chronic back pain; Gout; Aneurysm; High Cholesterol; Hypertension; Diabetes - NIDDM; ll1 - PSHx: 08:54 hernia repair (en); Stented artery; ll1 - Immunization history:: Adult Immunizations up to date. - Infectious Disease History:: Denies. - Social history:: Smoking status: Patient denies any tobacco usage or history of. Screenin:12 [facility] ED Fall Risk Assessment (Adult) History of falling in the last 3 months, mb9 including since admission No falls in past 3 months (0 pts) Confusion or Disorientation No (0 pts) Intoxicated or Sedated No (0 pts) Impaired Gait No (0 pts) Mobility Assist Device Used No (0 pt) Altered Elimination No (0 pt) Score/Fall Risk Level 0 - 2 = Low Risk Oriented to surroundings, Maintained a safe environment, Educated pt \T\ family on fall prevention, incl call for assistance when getting out of bed. Abuse screen: Denies threats or abuse. Nutritional screening: No deficits noted. Tuberculosis screening: No symptoms or risk factors identified. Assessment: 09:10 Reassessment: US at bedside . aa5 09:11 General: Appears in no apparent distress. Behavior is calm, cooperative. Pain: mb9 Complains of pain in left foot Pain radiates to left leg Pain currently is 7 out of 10 on a pain scale. Quality of pain is described as throbbing, Pain began 2-3 days ago. Is intermittent. Neuro: Marte Agitation-Sedation Scale (RASS): 0 - Alert and Calm Level of Consciousness is awake, alert, obeys commands, Oriented to person, place, time, situation, Appropriate for age. Cardiovascular: Pulses are all present. Edema is 1+ to left foot and left toes. Respiratory: Airway is patent Respiratory effort is even, unlabored, Respiratory pattern is regular, symmetrical. GI: No signs and/or symptoms were reported involving the gastrointestinal system. : No signs and/or symptoms were reported regarding the genitourinary system. EENT: No signs and/or symptoms were reported regarding the EENT system. Derm: Skin is pink, warm \T\ dry. Musculoskeletal: Range of motion: intact in all extremities, Swelling present in left foot. 10:15 Reassessment: Patient and/or family updated on plan of care and expected duration. Pain mb9 level reassessed. Patient is alert, oriented x 3, equal unlabored respirations, skin warm/dry/pink. Patient states feeling better. Patient states symptoms have improved. Vital Signs: 09:01 BP 144 / 98; Pulse 77; Resp 18; Temp 97; Pulse Ox 96% on R/A; Weight 97.07 kg; Height 6 ll1 ft. 0 in. ; Pain 7/10; 09:34 BP 139 / 81; Pulse 71; Resp 18; Pulse Ox 95% on R/A; mb9 09:01 Body Mass Index 29.02 (97.07 kg, 182.88 cm) ll1 09:01 Pain Scale: Adult ll1 ED Course: 08:51 Patient arrived in ED. mg5 08:54 Arm band placed on Patient placed in an exam room, on a stretcher. ll1 08:55 Carine Murillo FNP-C is [facility] kb 08:55 Louis Zhu MD is Attending Physician. kb 09:00 Janett Husain, RN is Primary Nurse. aa5 09:02 Triage completed. ll1 09:10 Primary Nurse role handed off by Janett Husain, ELIGIO mb9 09:10 Gertrude Francis, ELIGIO is Primary Nurse. mb9 09:12 Placed in gown. Bed in low position. Call light in reach. Side rails up X 1. Provided mb9 Education on: press call light if needing anything. Client placed on continuous cardiac and pulse oximetry monitoring. NIBP monitoring applied. 09:13 No provider procedures requiring assistance completed. mb9 09:35 US Extremity Venous Unilateral Ltd In Process Unspecified. EDMS 10:15 Patient did not have IV access during this emergency room visit. mb9 Administered Medications: 09:11 Drug: Ketorolac IM 30 mg IM once Route: IM; Site: right deltoid; mb9 09:44 Follow up: Response: No adverse reaction mb9 09:50 Drug: Colcrys PO 1.2 mg PO once Route: PO; mb9 10:07 Follow up: Response: No adverse reaction mb9 Medication: 09:12 VIS not applicable for this client. mb9 Outcome: 10:05 Discharge ordered by . kb 10:15 Discharged to home ambulatory, with family, mb9 10:15 Condition: stable 10:15 Discharge instructions given to patient, family, Instructed on discharge instructions, follow up and referral plans. Demonstrated understanding of instructions, follow-up care, medications, Prescriptions given X 1, 10:15 Patient left the ED. [email or web address] Signatures: Dispatcher [employer] EDCarine Beard, STEAM GENERATING POWERPLANT MECHANIC-C STEAM GENERATING POWERPLANT MECHANIC-Janett Jerome, RN RN aa5 Ankit Bridges RN RN ll1 Gertrude Francis RN RN mb9 Norma Faith mg5 Corrections: (The following items were deleted from the chart) 09:45 09:34 BP 139 / 8; Pulse 71bpm; Resp 18bpm; Pulse Ox 95% RA; mbMathew [email or web address]
[2024-02-23 11:45] VITALS: TEMP 97
[2024-02-23 11:46] VITALS: BP 139/81; O2SAT 95
== END 2024-02-23 10:15 | disposition home or self-care (01) ==
LOC: ER 08:49
DX: M10.9 Gout, unspecified (principal)
CPT/HCPCS: 93971; 96372; 99284

== ENCOUNTER 2024-05-18 16:31 | Emergency (ER) | payer OTHER ==
--- OUTSIDE RECORDS SUMMARY | 2024-05-18 16:33 | XMS REPORT | Continuity of Care Document ---
Author Name Unknown Address [address] [place] [address] [facility] thconnect Address [address] [place] [address] Care Team Providers Care Molding Plasterer Name Role Phone CHRISTOPHER GIBBS Primary Care Physician NERISSA Lopez Attending Clinician Mamie Simpson MD, Nerissa Santos Attending Clinician [phone] NERISSA HOBSON Admitting Clinician Mamie garcia Payers Payer Name Policy Type Policy Number Effective Date Expirati on Date Source [employer] [id number] 2022 00:00:00 Allergies, Adverse Reactions, Alerts Allergy Name Allergy Type Status Severity Reaction(s) Onset Date Inactive Date Treating Clinician Comments Source NO KNOWN ALLERGIE S Drug Class Active [facility] Social History Social Habit Start Date Stop Date Quantity Comments Source Sexual orientation U [facility] Gender identity [facility] Sex Assigned At 1945 00:00:00 1945 00:00:00 [facility] Smoking Status Start Date Stop Date Source Tobacco smoking consumption unknown [facility] Procedures Procedure Date / Time Performed Performing Clinicia n Source MR LUMBAR SPINE WO CONTRAST 2022-12-13 16:47:15 Nerissa Hobson [facility] Encounters Start Date/Time End Date/Time Encounter Type Admission Type Attending Clinicians Care Facility Care Department Encounter ID Source 2022-12-13 10:15:09 2022-12-13 23:59:00 Outpatient R NERISSA HOBSON [facility] [id number] [facility] 2022-12-13 10:00:00 2022-12-13 23:59:00 Hospital Encounter Nerissa Hobson [facility] [id number] [facility]
--- NOTE | 2024-05-18 17:23 | EDPHYS ---
Physician Documentation [facility] Name: Christian Tejada Age: 79 yrs Sex: Male : 1945 Arrival Date: 05/18/2024 Time: 16:31 Bed 9 Private MD: JER Physician Mu Staples HPI: 05/18 17:15 This 79 yrs old Male presents to ER via Ambulatory with complaints of Jock itch. cp 17:15 The patient's rash thought to be caused by an unknown cause. The rash is located on the cp scrotal area. The rash can be described as erythematous, moist, burning and itching. Onset: The symptoms/episode began/occurred 1 week(s) ago. 17:15 Associated signs and symptoms: Pertinent negatives: fever, drainage. Attempted to treat cp rash with OTC Tinactin spray and Clove oil. Historical: - Allergies: 16:53 No Known Allergies; cm10 - Home Meds: 16:53 lisinopril 5 mg Oral tablet 1 tab daily [Active]; omeprazole 20 mg Oral capsule daily cm10 [Active]; metformin 1 Oral tablet 1 tab 2 times per day with meals [Active]; Lasix 20 mg Oral tablet 1 tab as needed [Active]; metoprolol succinate 50 mg oral Tablet, Extended Release 24 hr 1 tab daily [Active]; clopidogrel 75 mg Oral tablet 1 tab daily [Active]; atorvastatin 10 mg Oral tablet 1 tab every day at bedtime [Active]; glimepiride 1 mg Oral tablet 1 tab daily [Active]; amlodipine 5 mg tablet 1 tab daily [Active]; tramadol 50 mg Oral tablet 1 tab 3 times per day [Active]; allopurinol 100 mg Oral tablet daily [Active]; colchicine 0.6 mg oral tablet 1 tab [Active]; - PMHx: 16:53 Aneurysm; chronic back pain; Diabetes - NIDDM; Gout; High Cholesterol; Hypertension; cm10 - PSHx: 16:53 hernia repair; Stented artery; cm10 - Immunization history:: Adult Immunizations up to date. - Infectious Disease History:: Denies. - Social history:: Smoking status: Patient denies any tobacco usage or history of. ROS: 17:18 Eyes: Negative for injury, pain, redness, and discharge, cp 17:18 Constitutional: Negative for body aches, chills, fever, poor PO intake, 17:18 Respiratory: Negative for cough, shortness of breath, wheezing, 17:18 Abdomen/GI: Negative for abdominal pain, vomiting, diarrhea, constipation, 17:18 : Positive for scrotal rash, 17:18 All other systems are negative, Exam: 17:19 Head/Face: Normocephalic, atraumatic. cp 17:19 Constitutional: The patient appears in no acute distress, alert, awake, non-toxic, well developed, well nourished, uncomfortable, 17:19 Cardiovascular: Rate: tachycardic, 17:19 Respiratory: the patient does not display signs of respiratory distress, Respirations: normal, no use of accessory muscles, no retractions, labored breathing, is not present, Breath sounds: are clear throughout, no decreased breath sounds, 17:19 Abdomen/GI: Inspection: abdomen appears normal, 17:19 Skin: rash can be described as erythematous, moist, on the scrotal area, Vital Signs: 16:56 BP 125 / 94; Pulse 103; Resp 17; Temp 98.1(O); Pulse Ox 94% on R/A; Weight 98.88 kg; cm10 Height 6 ft. 0 in. ; Pain 5/10; 17:30 BP 120 / 90; Pulse 98; Resp 18; Pulse Ox 95% on R/A; br2 16:56 Body Mass Index 29.57 (98.88 kg, 182.88 cm) cm10 16:56 Pain Scale: Adult cm10 MDM: 16:58 Medical Screening Exam initiated cp 17:18 Differential diagnosis: cellulitis, tinea cruris, candidiasis, zoster. cp 17:22 Data reviewed: vital signs, nurses notes, and as a result, I will discharge patient. cp Administered Medications: 17:38 Drug: Fluconazole PO 200 mg PO once Route: PO; br2 17:41 Follow up: Response: Medication administered at discharge. br2 Disposition Summary: 05/18/24 17:22 Discharge Ordered Notes: Location: Home cp Problem: new cp Symptoms: are unchanged cp Condition: Stable cp Diagnosis - Candidiasis, unspecified cp Followup: cp - With: Private Physician - When: 1 week - Reason: no improvement Discharge Instructions: - Discharge Summary Sheet cp - Genital Yeast Infection, Male cp Forms: - Medication Reconciliation Form cp - Antibiotic Education cp - Prescription Opioid Use cp - Patient Portal Instructions cp - Leadership Thank You Letter cp Prescriptions: - nystatin 100,000 unit/gram Topical cream - apply 1 application TOPICAL route 2-3 times daily for 8-10 days; 45 gram tube; cp Refills: 0, Product Selection Permitted Addendum: 05/20/2024 15:28 Co-signature as Attending Physician, Mu Staples MD I agree with the assessment and c gallegos plan of care. Signatures: Mu Staples MD MD cha Page, Corey, PA PA Patti Broderick RN RN cm10 Preethi Kamara RN RN br2 Corrections: (The following items were deleted from the chart) 05/18 16:56 16:53 Home Meds: metoprolol tartrate 50 mg Oral tablet daily; cm10 cm10
--- NOTE | 2024-05-18 17:23 | ER ---
Nurse's Notes [facility] Name: Christian Tejada Age: 79 yrs Sex: Male : 1945 Arrival Date: 05/18/2024 Time: 16:31 Bed 9 Private MD: Diagnosis: Candidiasis, unspecified Presentation: 05/18 16:56 Chief complaint: Patient states: Jock itch X1 week. pt reports putting clove oil on it cm10 and now it is worse. Coronavirus screen: Client denies travel out of the [place] in the last 14 days. Ebola Screen: Patient denies travel to an Ebola-affected area in the 21 days before illness onset. Initial Sepsis Screen: Does the patient meet any 2 criteria? HR > 90 bpm. Does the patient have a suspected source of infection? No. Patient's initial sepsis screen is negative. Risk Assessment: Do you want to hurt yourself or someone else? Patient reports no desire to harm self or others. Onset of symptoms was May 18, 2024. 16:56 Method Of Arrival: Ambulatory cm10 16:56 Acuity: JAMES 4 cm10 Triage Assessment: 16:57 General: Appears in no apparent distress. uncomfortable, Behavior is calm, cooperative. cm10 Neuro: No deficits noted. Level of Consciousness is awake, alert, obeys commands, Oriented to person, place, time, situation, Appropriate for age. Respiratory: No deficits noted. Airway is patent Respiratory effort is even, unlabored, Respiratory pattern is regular, symmetrical. Historical: - Allergies: 16:53 No Known Allergies; cm10 - Home Meds: 16:53 lisinopril 5 mg Oral tablet 1 tab daily [Active]; omeprazole 20 mg Oral capsule daily cm10 [Active]; metformin 1 Oral tablet 1 tab 2 times per day with meals [Active]; Lasix 20 mg Oral tablet 1 tab as needed [Active]; metoprolol succinate 50 mg oral Tablet, Extended Release 24 hr 1 tab daily [Active]; clopidogrel 75 mg Oral tablet 1 tab daily [Active]; atorvastatin 10 mg Oral tablet 1 tab every day at bedtime [Active]; glimepiride 1 mg Oral tablet 1 tab daily [Active]; amlodipine 5 mg tablet 1 tab daily [Active]; tramadol 50 mg Oral tablet 1 tab 3 times per day [Active]; allopurinol 100 mg Oral tablet daily [Active]; colchicine 0.6 mg oral tablet 1 tab [Active]; - PMHx: 16:53 Aneurysm; chronic back pain; Diabetes - NIDDM; Gout; High Cholesterol; Hypertension; cm10 - PSHx: 16:53 hernia repair; Stented artery; cm10 - Immunization history:: Adult Immunizations up to date. - Infectious Disease History:: Denies. - Social history:: Smoking status: Patient denies any tobacco usage or history of. Screenin:00 [facility] ED Fall Risk Assessment (Adult) History of falling in the last 3 months, br2 including since admission No falls in past 3 months (0 pts). [facility] ED Fall Risk Assessment (Adult) Confusion or Disorientation No (0 pts) Intoxicated or Sedated No (0 pts) Impaired Gait No (0 pts) Mobility Assist Device Used No (0 pt) Altered Elimination No (0 pt) Score/Fall Risk Level 0 - 2 = Low Risk Oriented to surroundings. Abuse screen: Denies threats or abuse. Denies injuries from another. Nutritional screening: No deficits noted. Tuberculosis screening: No symptoms or risk factors identified. Assessment: 17:00 Reassessment: Patient and/or family updated on plan of care and expected duration. Pain br2 level reassessed. Patient is alert, oriented x 3, equal unlabored respirations, skin warm/dry/pink. General: Appears in no apparent distress. distressed, Behavior is calm, cooperative. Pain: Complains of pain in groin Pain currently is 5 out of 10 on a pain scale. Derm: Reports itching, pain bilateral testicals, rash. Vital Signs: 16:56 BP 125 / 94; Pulse 103; Resp 17; Temp 98.1(O); Pulse Ox 94% on R/A; Weight 98.88 kg; cm10 Height 6 ft. 0 in. ; Pain 5/10; 17:30 BP 120 / 90; Pulse 98; Resp 18; Pulse Ox 95% on R/A; br2 16:56 Body Mass Index 29.57 (98.88 kg, 182.88 cm) cm10 16:56 Pain Scale: Adult cm10 ED Course: 16:33 Patient arrived in ED. ra3 16:49 Mu Sanchez PA is PHCP. cp 16:49 Mu Staples MD is Attending Physician. cp 16:55 Mu Sanchez PA is PHCP. cp 16:55 Mu Staples MD is Attending Physician. cp 16:57 Triage completed. cm10 16:58 Arm band placed on right wrist. Patient placed in waiting room. cm10 17:00 Patient has correct armband on for positive identification. Placed in gown. Bed in low br2 position. Call light in reach. Side rails up X 1. Provided Education on: plan of care. 17:22 Preethi Kamara, ELIGIO is Primary Nurse. br2 17:41 No provider procedures requiring assistance completed. Patient did not have IV access br2 during this emergency room visit. Administered Medications: 17:38 Drug: Fluconazole PO 200 mg PO once Route: PO; br2 17:41 Follow up: Response: Medication administered at discharge. br2 Medication: 17:41 VIS not applicable for this client. br2 Outcome: 17:22 Discharge ordered by MD. cp 17:41 Discharged to home ambulatory, br2 17:41 Condition: good 17:41 Discharge instructions given to patient, Instructed on discharge instructions, follow up and referral plans. Demonstrated understanding of instructions, follow-up care, medications, Prescriptions given X 1, 17:47 Patient left the ED. br2 Signatures: Mu Sanchez PA PA cp Patti Ballard RN RN cm10 Doris Keller ra3 Preethi Kamara RN RN br2 Corrections: (The following items were deleted from the chart) 16:56 16:53 Home Meds: metoprolol tartrate 50 mg Oral tablet daily; cm10 cm10
[2024-05-18] MEDS ORDERED: FLUCONAZOLE 100 MG TAB ONE (17:26)
[2024-05-18 18:09] VITALS: BP 125/94; TEMP 98.1; O2SAT 94
== END 2024-05-18 17:47 | disposition home or self-care (01) ==
LOC: ER 16:31
DX: B37.9 Candidiasis, unspecified (principal)
CPT/HCPCS: 99283